=== PATIENT | male | born 1980 | race American Indian/Alaskan Native ===

== ENCOUNTER 2018-09-26 17:56 | Emergency (ER) | payer OTHER ==
[2018-09-26 17:56] VITALS: BMI 28.8
[2018-09-26 18:10] VITALS: TEMP 98.4
[2018-09-26 18:58] LABS: ALB/GLOB RATIO 1.3 (1.1-1.8); ALBUMIN 4.3 g/dL (3.0-4.8); ALT/SGPT 30 U/L (7-56); AST/SGOT 23 U/L (17-59); BLOOD UREA NITROGEN 18 mg/dL (7-21); CALCIUM 9.4 mg/dL (8.4-10.5); GFR NON-AFRICAN AMERICAN > 60
[2018-09-26 18:59] LABS: BASO # 0.03 K/mm3 (0.0-2.0); BASO % 0.6 % (0.0-3.0); EOS # 0.1 (0.0-0.7); EOS % 1.3 % (1.5-5.0); GRAN # 3.49 (1.4-6.5); GRAN % 65.6 % (50.0-68.0); HEMOGLOBIN 14.7 g/dL (14.0-18.0); LYMPH # 1.3 (1.2-3.4); LYMPH % 24.8 % (22.0-35.0); MEAN CELL VOLUME 83.7 fl (80.0-105.0); MEAN CORPUSCULAR HEMOGLOBIN 27.6 pg (25.0-35.0); MEAN PLATELET VOLUME 9.1 fl (7.0-11.0); MONO # 0.4 (0.1-0.6); MONO % 7.7 % (1.0-6.0); RBC 5.33 10^6/uL (3.5-6.1); RED CELL DISTRIBUTION WIDTH 12.7 % (11.5-14.5); WHITE BLOOD COUNT 5.3 10^3/uL (4.5-11.0)
[2018-09-26 19:02] LABS: INR 1.08; PARTIAL THROMBOPLASTIN TIME 33.1 Seconds (25.1-36.5); PROTHROMBIN TIME 12.3 SECONDS (9.4-12.5)
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
[2018-09-26] MEDS ORDERED: Iohexol 350 MG/100 ML VIAL ONE (19:40)
[2018-09-26 20:46] VITALS: PULSE 63
[2018-09-26 22:04] VITALS: BP 116/69; RESP 15; O2SAT 95
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
== END 2018-09-26 21:58 | disposition home or self-care (01) ==
LOC: ED 17:56
DX: M79.605 Pain in left leg (principal); R10.9 Unspecified abdominal pain; M19.011 Primary osteoarthritis, right shoulder; V49.49XA Driver injured in collision with other motor vehicles in traffic accident, initial encounter; Y92.410 Unspecified street and highway as the place of occurrence of the external cause
CPT/HCPCS: 73030; 73590; 74177; 80053; 85025; 85610; 85730; 96374; 99285; J1885; Q9967